=== PATIENT | female | born 1980 | race Caucasian/White ===

== ENCOUNTER 2024-03-30 19:07 | Outpatient (CLI) | payer MEDICAID | END 2024-03-30 23:59 | disposition critical access hospital (66) | LOC: EMS 19:07 | DX: R56.9 Unspecified convulsions (principal) | CPT/HCPCS: A0425; A0429; A0999 ==

== ENCOUNTER 2024-03-30 19:19 | Emergency (ER) | payer MEDICAID ==
--- NOTE | 2024-03-30 19:57 | ED Physician Documentation ---
PD HPI SEIZURE - Stated complaint Stated Complaint: SZ - Chief complaint Chief Complaint: Neuro - History obtained from History obtained from: Patient, EMS - History of Present Illness Timing - onset: Today Witnessed: Unwitnessed (history of seizures and had episode of feeling briefly impending one and awoke on floor. She wanted to get checked and is concerned that she missed doses of meds and wants to be on them. Called EMS so was already thorugh the post ictal phase at that point.) Number of seizures: Single, Unobtainable Description of seizure activity: Generalized Injury during seizure: None (she does not have any tender areas to suggest injury.). No: Head injury Associated symptoms: No: Headache, Chest pain, Dyspnea, Nausea / vomiting Contributing factors: Other (she is here from [place] to attend a and unintentionally left her Lamictal at friend house. Has her other meds with her though forgot the gabapentin 2 doses today due to the situation.). No: Substance abuse, EtOH withdrawal Similar symptoms before: Diagnosis (seizures since childhood. last one was about a year ago. Had been doing well on current med regimen.) Review of Systems Constitutional: denies: Fever, Chills Nose: denies: Rhinorrhea / runny nose, Congestion Throat: denies: Sore throat Respiratory: denies: Cough GI: denies: Vomiting, Diarrhea Neurologic: denies: Focal weakness, Numbness, Headache PD PAST MEDICAL HISTORY - Past Medical History Past Medical History: Yes Neuro: Seizure disorder - Present Medications Home Medications: Ambulatory Orders Medication Instructions Recorded Confirmed Buprenorphine HCl/Naloxone HCl 28.5 03/30/24 [Suboxone 8 mg-2 mg Sl Film] Gabapentin [Neurontin] 1,200 mg PO TID 30 Days #360 tab 03/30/24 lamoTRIgine [LaMICtal] 100 BID 03/30/24 lamoTRIgine [LaMICtal] 100 mg PO BID 30 Days #60 tablet 03/30/24 - Allergies Allergies/Adverse Reactions: Allergies Allergy/AdvReac Type Severity Reaction Status Date / Time clindamycin Allergy Rash Verified 03/30/24 19:25 - Social History Does the pt smoke?: No Smoking Status: Never smoker PD ED PE NORMAL - Vitals Vital signs reviewed: Yes - General General: Alert and oriented X 3, No acute distress, Well developed/nourished - HEENT HEENT: Atraumatic, Pharynx benign - Neck Neck: Supple, no meningeal sign, No bony TTP - Derm Derm: Normal color, Warm and dry - Extremities Extremities: Normal ROM s pain - Neuro Neuro: Alert and oriented X 3, No motor deficit, Normal speech Results - Vitals Vitals: Vital Signs - 24 hr 03/30/24 03/30/24 03/30/24 19:25 19:31 20:27 Temperature 36.3 C L Heart Rate 89 74 Respiratory 14 14 Rate Blood Pressure 116/69 116/69 99/74 O2 Saturation 97 98 Oxygen O2 Source Room air PD Medical Decision Making - ED course Complexity details: reviewed results (she is feeling well and recovered from the seizure. Given dose of lamictal here and she took her gabapentin. I wrote scripts for her as refills as she will be going to relatives in [place] and wants meds to take. ), considered differential (Patient here from [place] for the past 3 days to attend a . It has been very emotional and distracting. She had left her Lamictal at a friend's house she was staying so had not taken it for 3 days. Neglected the gabapentin 2 doses today. No illness or fevers. No vomiting. ), d/w patient Departure - Departure Disposition: 01 Home, Self Care Clinical Impression: Seizure, Seizure disorder Condition: Stable Record reviewed to determine appropriate education?: Yes Prescriptions: lamoTRIgine [LaMICtal] 100 mg PO BID 30 Days #60 tablet Gabapentin [Neurontin] 1,200 mg PO TID 30 Days #360 tab Comments: Stay well-hydrated. Try to sleep better which is course easier said than done. You could use Benadryl or such if needed to help with getting to sleep. These would be okay with your medicines. Continue with your Lamictal and gabapentin as well as other medications. I wrote a refill prescription for you still have it on hand and he can get subsequent refills from your neurologist. It was sent to your preferred pharmacy[facility] in [place]. Tylenol or ibuprofen if needed for pains. Forms: PCP List Discharge Date/Time: 03/30/24 20:27
[2024-03-30] MEDS: ACETAMINOPHEN 500 MG TABLET PO STA (20:18)
[2024-03-30] MEDS: lamoTRIgine 100 MG TABLET PO STA (20:18)
[2024-03-30 20:40] VITALS: BP 99/74; O2SAT 98
== END 2024-03-30 20:27 | disposition home or self-care (01) ==
LOC: ED 19:19
DX: G40.909 Epilepsy, unspecified, not intractable, without status epilepticus (principal)
CPT/HCPCS: 36415; 99283; 99284; A9270